=== PATIENT | female | born 2000 | race Two or more races ===

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

== ENCOUNTER 2021-03-05 12:55 | Outpatient (REF) | payer OTHER, SELFPAY ==
--- NOTE | ~2021-03-05 | US_ITS ---
EXAMINATION: US PELVIC AND TRANSVAGINAL CLINICAL INFORMATION: Ovarian cyst. COMPARISON: Ultrasound pelvis 11/12/2020. TECHNIQUE: Ultrasound of the pelvis was performed using both transabdominal and transvaginal transducers along with Doppler. Transvaginal imaging is performed due to inadequate visualization transabdominally. FINDINGS: UTERUS: The uterus is anteverted, anteflexed and measures 7.0 x 3.4 x 5.0 cm. The double wall endometrial thickness is 0.9 cm. The uterus is smooth in contour and has normal myometrial echogenicity. No visible fibroid. There are small nabothian cysts in the cervix. ADNEXA: Both ovaries are visualized. There is normal color flow to the adnexa. There is no ovarian torsion. There is no pelvic ascites or fluid collection. Right ovary measures 3.3 x 2.3 x 2.7 cm and volume 10.7 mL. There is an anechoic, septated cyst with peripheral flow measuring 1.0 x 0.9 x 1.0 cm. Previously, the right ovary measured 3.2 x 2.1 x 2.8 cm and volume 9.9 mL. Left ovary measures 3.2 x 2.3 x 2.3 cm and volume 8.9 mL. Previously, it measured 2.7 x 2.1 x 2.0 cm and volume 5.9 mL. There is a mild echogenic area in the left ovary measuring 1.3 x 0.9 x 1.4 cm question a complex cyst versus a small dermoid. Previously, it measured 1.2 x 1.1 x 1.2 cm. There is no free fluid in the cul-de-sac. US/US pelvic and transvaginal IMPRESSION: Small nabothian cysts in the cervix. The uterus is unremarkable. Septated cyst right ovary. Dermoid versus complex cyst left ovary. It is stable compared to the previous study.
== END 2021-03-05 12:56 | disposition home or self-care (01) ==
LOC: HO.US 12:55
PROVIDERS: PCP Pediatrics; Visit Provider Obstetrics & Gynecology
DX: N83.299 Other ovarian cyst, unspecified side (principal)
CPT/HCPCS: 76830; 76856

== ENCOUNTER → 2021-03-20 15:10 | Outpatient (BNVA) | payer OTHER, SELFPAY | PROVIDERS: PCP Pediatrics; Visit Provider Obstetrics & Gynecology ==

== ENCOUNTER 2021-03-26 08:43 | Outpatient (REF) | payer OTHER, SELFPAY ==
[2021-03-26 09:14] LABS: COVID-19 Test Negative (Negative); IDNOW Serial# 16C4AD1C
== END 2021-03-26 08:44 | disposition home or self-care (01) ==
LOC: HO.LAB 08:43
PROVIDERS: Visit Provider Internal Medicine
DX: Z20.822 Contact with and (suspected) exposure to COVID-19 (principal)
CPT/HCPCS: 36415; 87635; C9803

== ENCOUNTER 2022-02-06 22:19 | Emergency (ER) | payer OTHER, SELFPAY ==
[2022-02-06 22:34] VITALS: BP 120/75; PULSE 103; RESP 19; TEMP 36.9; O2SAT 100; BMI 29.2
[2022-02-06 22:54] LABS: Basophils Percent Auto 0.1 % (0-2); Eosinophils Percent Auto 0.3 % (0-4); Hematocrit 45.2 % (37.0-47.0); Hemoglobin 14.9 g/dl (12.0-16.0); Imm Gran Abs Auto 0.04 X10*3/uL (0.00-0.03); Imm Gran Pct Auto 0.3 % (0.0-0.4); Lymphocytes Absolute Auto 0.6 X10*3/uL (1.2-4.9); Lymphocytes Percent Auto 4.7 % (20-40); MANUAL DIFF FLAG SCAN; Mean Corpuscular Hemoglobin 31.6 pg (27.0-33.0); Mean Corpuscular Volume 95.8 fL (80.0-98.0); Mean Platelet Volume 9.4 fL (9.4-12.3); Monocytes Absolute Auto 0.3 X10*3/uL (0.1-1.2); Monocytes Percent Auto 2.6 % (2-11); Neutrophils Absolute Auto 11.1 x10*3/uL (2.0-8.3); Platelet Count 297 X10*3/uL (160-400); Red Blood Count 4.72 X10*6/uL (4.20-5.50); Red Cell Distribution Width 11.4 % (11.0-16.0); SCAN SMEAR FLAG 1; White Blood Count 12.1 X10*3/uL (4.8-10.8)
[2022-02-06] MEDS: Ondansetron ODT 4 MG TAB.RAPDIS TRANSLINGU (22:57)
[2022-02-06 23:11] LABS: Alanine Aminotransferase 20 U/L (0-31); Albumin Level 4.8 g/dL (3.5-5.0); Alkaline Phosphatase 68 U/L (39-117); Anion Gap 18 (12-20); Aspartate Amino Transferase 19 U/L (5-31); Bilirubin Total 1.1 mg/dL (0.0-1.0); Blood Urea Nitrogen 15 mg/dL (9-16); Calcium 9.7 mg/dL (8.4-10.2); Carbon Dioxide 22 mmol/L (22-29); Chloride 104 mmol/L (96-108); Creatinine Clr Calc Pharmacy 101.6; Estimated Glomerular Filt Rate > 60; Glucose Random 92 mg/dL (60-115); Potassium 4.1 mmol/L (3.3-5.1); Sodium 140 mmol/L (135-145); Total Protein 8.2 g/dL (6.5-8.0)
[2022-02-06 23:12] LABS: SLIDE REVIEW VERIFIED
[2022-02-06 23:44] VITALS: BP 117/69; PULSE 119; RESP 14; TEMP 37.5; O2SAT 99
--- NOTE | 2022-02-07 00:27 | ED.ABDPAIN ---
HPI - Abdominal Pain General Chief Complaint: Abdominal Pain Stated Complaint: Vomiting Time Seen by Provider: 02/06/22 23:48 Source: patient Limitations: no limitations History of Present Illness HPI narrative: This is a 21-year-old female who complains of lower abdominal pain, bilateral, since yesterday. The patient notes she has history of ovarian cysts, but recently had follow-up with her OBGYN who did an ultrasound and stated that her ovarian cyst had resolved. The patient states she is going to ovulation right now, and she thinks maybe this is why she is having pain or possibly a new cyst. She has had mild nausea and vomiting. She denies any constipation or diarrhea. She denies any UTI symptoms such as dysuria or urinary frequency. She denies any unusual vaginal discharge. She denies fever. Related Data Previous Rx's Medication Instructions Recorded ibuprofen 600 mg tablet 600 mg PO Q8H PRN pain #20 tabs 09/23/20 nitrofurantoin 100 mg PO BID 5 days #10 caps 11/26/20 monohydrate/macrocrystals 100 mg capsule (Macrobid) ibuprofen 600 mg tablet 600 mg PO Q6H PRN pain #30 tabs 02/07/22 tramadol 50 mg tablet (Ultram) 50 - 100 mg PO Q6H PRN pain #20 02/07/22 tabs Allergies Allergy/AdvReac Type Severity Reaction Status Date / Time No Known Allergies Allergy Verified 02/06/22 22:37 Review of Systems Review of Systems Yes all other systems are reviewed and are negative Constitutional: Reports as per HPI and Denies fever(s) Eyes: Reports as per HPI and Reports no additional eye complaints Reports system reviewed and no additional complaints, except as documented, Reports as per HPI, Denies nasal congestion, Denies nasal discharge and Denies sore throat Cardiovascular: Reports as per HPI, Denies chest pain and Denies dyspnea Respiratory: Reports as per HPI, Denies cough and Denies dyspnea Gastrointestinal: Reports as per HPI, Reports abdominal pain, Denies diarrhea and Denies vomiting Genitourinary: Reports as per HPI, Denies hematuria, Denies urinary frequency and Denies dysuria Musculoskeletal: Reports no additional musculoskeletal complaints and Denies numbness Skin/Breast: Reports as per HPI and Denies rash Reports as per HPI, Denies focal weakness and Denies numbness Psychiatric: Reports no additional psychiatric complaints and Reports as per HPI Endocrine: Reports no additional endocrine complaints and Reports as per HPI Hematologic/Lymphatic: Reports no additional hematologic/lymphatic complaints, Reports as per HPI and Reports other (No peripheral edema) [facility] Past Medical History Medical History No known health problems Social History Social History Alcohol intake: current Alcohol intake frequency: does not drink Patient Tobacco Use Status: Never used Tobacco Smoked in Last 30 Days: No Use of substances other than those prescribed or required for medical reasons: No Advance Directives: No Advance Directives Information Provided: Yes Patient : No Gender identity: Female Physical Exam ED Vital Signs: Vital Signs - 24 hr 02/06/22 22:34 02/06/22 23:44 Temperature 98.5 F 99.5 F Pulse Rate 103 H 119 H Respiratory Rate 19 14 Blood Pressure 120/75 117/69 Pulse Oximetry 100 99 Oxygen Delivery Method Room Air BMI result Body Mass Index 29.2 Const General: no acute distress Orientation/consciousness: patient oriented x3 HENMT Head: Yes normal to inspection General nose exam: Normal external nose present Mouth: moist mucous membranes Throat: Yes posterior oropharynx normal, Yes tonsils normal and Yes uvula midline Eyes Eyelids: Yes eyelids normal Conjunctivae: conjunctivae normal Pupils: Equal, round and reactive pupils present Neck Neck: Yes supple Resp Effort & Inspection: normal respiratory effort Auscultation: clear to auscultation bilaterally Cardio Rate: regular rate Rhythm: regular rhythm Heart sounds: S1 normal heart sound present, S2 normal heart sound present, no gallops, no murmurs and no rubs GI Inspection: No distended Palpation (GI): Soft to palpation and Tenderness to palpation present (GI) (Mild tenderness diffusely, worse lower abdomen. No guarding) Auscultation: normal bowel sounds External Female Exam: normal external appearance Speculum Exam - Vagina: normal appearance of the vagina and normal vaginal discharge Speculum Exam - Cervix: normal appearance of the cervix, normal palpation, Cervical os closed and nontender Bimanual exam- vagina & uterus: normal bimanual exam, normal palpation, No Cervical tenderness present, no cervical motion tenderness and other (Mild bilateral adnexal tenderness) Skin General skin exam: other (Warm and dry) Neuro General: patient oriented x3 and CN's II-XI intact bilaterally Cranial nerves: Yes Equal, round and reactive pupils present Extrem General: Yes no pedal edema Psych Affect: normal affect Attitude: cooperative MDM - Abdominal Pain MDM Narrative Medical decision making narrative: Patient with lower abdominal pain since yesterday with associated nausea. Patient knows he is in the middle of her cycle and B she is ovulating. Patient does have history of prior ovarian cyst. No concerning findings on exam. No clinical evidence of cervicitis or PID. Urinalysis negative. Patient not . Patient will be treated with ibuprofen, tramadol. Patient was treated in the ED with normal saline 1 L IV, Zofran 4 mg IV, Toradol IV., with some improvement Lab Data Result diagrams: 02/06/22 22:46 02/06/22 22:46 Labs: Lab Results 02/06/22 02/06/22 02/07/22 Range/Units 22:46 22:46 01:40 WBC 12.1 H (4.8-10.8) X10*3/uL RBC 4.72 (4.20-5.50) X10*6/uL Hgb 14.9 (12.0-16.0) g/dl Hct 45.2 (37.0-47.0) % MCV 95.8 (80.0-98.0) fL MCH 31.6 (27.0-33.0) pg MCHC 33.0 (31.0-35.0) g/dl RDW 11.4 (11.0-16.0) % Plt Count 297 (160-400) X10*3/uL MPV 9.4 (9.4-12.3) fL Immature Gran % (Auto) 0.3 (0.0-0.4) % Neut % (Auto) 92.0 H (45-73) % Lymph % (Auto) 4.7 L (20-40) % [place] % (Auto) 2.6 (2-11) % Eos % (Auto) 0.3 (0-4) % Baso % (Auto) 0.1 (0-2) % Lymph # (Auto) 0.6 L (1.2-4.9) X10*3/uL [place] # (Auto) 0.3 (0.1-1.2) X10*3/uL Eos # (Auto) 0.0 (0.0-0.4) X10*3/uL Baso # (Auto) 0.0 (0.0-0.2) X10*3/uL Abs Immat Gran (auto) 0.04 H (0.00-0.03) X10*3/uL Absolute Neuts (auto) 11.1 H (2.0-8.3) x10*3/uL Absolute Nucleated RBC 0.000 (0.0-0.012) X10*3/uL Nucleated RBC % (auto) 0.0 (0.0-0.2) /100WBC Smear Tech's Comments VERIFIED Sodium 140 (135-145) mmol/L Potassium 4.1 (3.3-5.1) mmol/L Chloride 104 (96-108) mmol/L Carbon Dioxide 22 (22-29) mmol/L Anion Gap 18 (12-20) BUN 15 (9-16) mg/dL Creatinine 0.76 (0.5-1.4) mg/dL Estim Creat Clear Calc 101.6 Estimated GFR > 60 Random Glucose 92 (60-115) mg/dL Calcium 9.7 (8.4-10.2) mg/dL Total Bilirubin 1.1 H (0.0-1.0) mg/dL AST 19 (5-31) U/L ALT 20 (0-31) U/L Alkaline Phosphatase 68 (39-117) U/L Total Protein 8.2 H (6.5-8.0) g/dL Albumin 4.8 (3.5-5.0) g/dL Urine Color Yellow Urine Appearance Clear Urine pH 6.5 (5.0-9.0) Ur Specific [place] >= 1.030 H (1.005-1.025) Urine Protein Trace (Neg-Trace) mg/dL Urine Glucose (UA) Negative (Negative) mg/dL Urine Ketones 80 (Negative) mg/dL Urine Blood Negative (Negative) Urine Nitrite Negative (Negative) Ur Leukocyte Esterase Negative (Negative) Urine Test (NEGATIVE) 02/07/22 Range/Units 01:40 WBC (4.8-10.8) X10*3/uL RBC (4.20-5.50) X10*6/uL Hgb (12.0-16.0) g/dl Hct (37.0-47.0) % MCV (80.0-98.0) fL MCH (27.0-33.0) pg MCHC (31.0-35.0) g/dl RDW (11.0-16.0) % Plt Count (160-400) X10*3/uL MPV (9.4-12.3) fL Immature Gran % (Auto) (0.0-0.4) % Neut % (Auto) (45-73) % Lymph % (Auto) (20-40) % [place] % (Auto) (2-11) % Eos % (Auto) (0-4) % Baso % (Auto) (0-2) % Lymph # (Auto) (1.2-4.9) X10*3/uL [place] # (Auto) (0.1-1.2) X10*3/uL Eos # (Auto) (0.0-0.4) X10*3/uL Baso # (Auto) (0.0-0.2) X10*3/uL Abs Immat Gran (auto) (0.00-0.03) X10*3/uL Absolute Neuts (auto) (2.0-8.3) x10*3/uL Absolute Nucleated RBC (0.0-0.012) X10*3/uL Nucleated RBC % (auto) (0.0-0.2) /100WBC Smear Tech's Comments Sodium (135-145) mmol/L Potassium (3.3-5.1) mmol/L Chloride (96-108) mmol/L Carbon Dioxide (22-29) mmol/L Anion Gap (12-20) BUN (9-16) mg/dL Creatinine (0.5-1.4) mg/dL Estim Creat Clear Calc Estimated GFR Random Glucose (60-115) mg/dL Calcium (8.4-10.2) mg/dL Total Bilirubin (0.0-1.0) mg/dL AST (5-31) U/L ALT (0-31) U/L Alkaline Phosphatase (39-117) U/L Total Protein (6.5-8.0) g/dL Albumin (3.5-5.0) g/dL Urine Color Urine Appearance Urine pH (5.0-9.0) Ur Specific [place] (1.005-1.025) Urine Protein (Neg-Trace) mg/dL Urine Glucose (UA) (Negative) mg/dL Urine Ketones (Negative) mg/dL Urine Blood (Negative) Urine Nitrite (Negative) Ur Leukocyte Esterase (Negative) Urine Test NEGATIVE (NEGATIVE) Discharge Plan Discharge Clinical Impression: Bilateral lower abdominal pain Patient Disposition: Home, Self-Care Instructions: Pelvic Pain (ED) Additional Instructions: Follow-up with your OBGYN. Use ibuprofen and tramadol for pain. Return for any new or worsened symptoms such as increased pain, fever Prescriptions: New tramadol [Ultram] 50 mg tablet 50 - 100 mg PO Q6H PRN (Reason: pain) Qty: 20 0RF ibuprofen 600 mg tablet 600 mg PO Q6H PRN (Reason: pain) Qty: 30 0RF No Action ibuprofen 600 mg tablet 600 mg PO Q8H PRN (Reason: pain) Qty: 20 0RF nitrofurantoin monohyd/m-cryst [Macrobid] 100 mg capsule 100 mg PO BID 5 Days Qty: 10 0RF
--- OUTSIDE RECORDS SUMMARY | 2022-02-07 00:36 | XMS_ITS | Continuity of Care Document ---
:2000 [facility] Address [address] [place] [phone]- Care Team Providers Name Role Phone Patrick COLBERT, Jennifer Jerez Primary Care Physician Encounter [facility] Date(s): 03/20/21 - 04/19/21 [facility] [address] [place] [id number] Allergies, Adverse Reactions, Alerts No Known Allergies Medications Clindagel 1% topical gel 1 application, Topically, 2 times a day, # 30 Gm, 3 Refills, Maintenance, 04/23/18 15:19:48 EST, Gel, 1 application Topically 2 times a day Start Date: 04/23/18 Status: Ordered Problem List Condition Effective Dates Status Health Status Informant Has not been vaccinated for Active COVID(Confirmed) Right adnexal cyst(Confirmed) Active 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
--- OUTSIDE RECORDS SUMMARY | 2022-02-07 00:36 | XMS_ITS | Continuity of Care Document ---
:2000 Author Organization [facility] Address [address] [place] [id number]- Care Team Providers Name Role Phone Jennifer Nguyen MD Primary Care Physician Encounter [facility] Date(s): 04/18/21 - 05/18/21 [facility] [address] [id number] Attending Physician: Marcus Justice Admitting Physician: Marcus Justice Referring Physician: Marcus Justice Allergies, Adverse Reactions, Alerts No Known Allergies [...] Active Last Pap smear September 2020 at [place], Active normal per patient(Confirmed) Social History Social History Type Response Smoking Status Never (less than 100 in life time) entered on: 03/17/18 Sex
--- OUTSIDE RECORDS SUMMARY | 2022-02-07 00:36 | XMS_ITS | Continuity of Care Document ---
:2000 Author Organization [facility] Address [address] [place] [address]- Care Team Providers Name Role Phone Jennifer Nguyen MD Primary Care Physician Encounter [facility] Date(s): 05/25/19 - 05/25/[address] [id number]- [facility] Attending Physician: Jennifer Nguyen MD Allergies, Adverse Reactions, Alerts Substance Reaction Severity Status NKA Active Medications Clindagel 1% topical gel 1 application, Topically, 2 times a day, # 30 Gm, 3 Refills, Maintenance, 04/23/18 15:19:48 EST, Gel, 1 application Topically 2 times a day Start Date: 04/23/18 Status: Ordered Problem List Condition Effective Dates Status Health Status Informant 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
--- OUTSIDE RECORDS SUMMARY | 2022-02-07 00:36 | XMS_ITS | Continuity of Care Document ---
:2000 [facility] Address [address] [place] [id number]- Care Team Providers Name Role Phone Jennifer Nguyen MD Primary Care Physician [id number] Date(s): 04/18/21 - 04/25/21 [facility] [address] [place] [id number] Attending Physician: Sandoval Cantor MD Referring Physician: Jennifer Nguyen MD Allergies, Adverse Reactions, Alerts No Known Allergies [...] Active Last Pap smear September 2020 at [place], Active normal per patient(Confirmed) Social History Social History Type Response Smoking Status Never (less than 100 in life time) entered on: 03/17/18 Sex
[2022-02-07] MEDS: ondansetron HCL 4 MG/2 ML VIAL IVPUSH (01:17)
[2022-02-07] MEDS: Ketorolac Tromethamine 15 MG/ML VIAL IVPUSH (01:17)
[2022-02-07] MEDS: 0.9 % Sodium Chloride 1,000 ML 999 ML IV (01:18)
[2022-02-07 01:51] LABS: Appearance Urine Clear; Color Urine Yellow; Glucose Urine UA Negative (Negative); Leukocyte Esterase Urine Negative (Negative); Nitrite Urine Negative (Negative); PH 6.5 (5.0-9.0); Specific Gravity - Urine >= 1.030 (1.005-1.025); Urine Blood Negative (Negative); Urine Ketones 80 mg/dL (Negative); Urine Protein Trace mg/dL (Neg-Trace)
[2022-02-07 01:55] LABS: UPreg QC Valid YES; Urine Pregnancy NEGATIVE (NEGATIVE)
--- NOTE | 2022-02-07 02:39 | PC.NURSE ---
Discharge instructions provided to pt. All questions answered. Pt verbalizes understanding.
[2022-02-07 03:55] LABS: CT PCR NOT DETECTED (Not Detect.); NG PCR NOT DETECTED (Not Detect.)
[2022-02-07 11:15] LABS: BV Int Neg Control Negative (Negative); BV Int Pos Control Positive (Positive)
== END 2022-02-07 02:39 | disposition home or self-care (01) ==
PROVIDERS: Emergency Provider Emergency Medicine; PCP Pediatrics
DX: R10.30 Lower abdominal pain, unspecified (principal); R11.2 Nausea with vomiting, unspecified; Z79.899 Other long term (current) drug therapy
CPT/HCPCS: 36415; 80053; 81003; 81025; 85025; 87480; 87491; 87510; 87591; 87660; 96361; 96374; 96375; 99284; 99285; J1885; J2405